=== PATIENT | female | born 1980 ===

== ENCOUNTER 2020-07-08 07:40 | Day surgery (SDC) | payer OTHER | END 2020-07-08 18:00 | disposition home or self-care (01) | LOC: CIR.AMB 07:40 | PROVIDERS: ATTEND Colon & Rectal Surgery | DX: K64.8 Other hemorrhoids (principal); K64.4 Residual hemorrhoidal skin tags; Z20.828 Contact with and (suspected) exposure to other viral communicable diseases ==